=== PATIENT | female | born 2000 | race Caucasian/White ===

== ENCOUNTER 2021-08-22 12:50 | Emergency (ER) | payer OTHER, SELFPAY ==
[2021-08-22 13:30] VITALS: BP 108/65; PULSE 70; RESP 16; TEMP 36.6; O2SAT 100
--- NOTE | 2021-08-22 14:35 | ED.FEMALEGU ---
HPI - Female Genitourinary General Chief complaint: Urogenital-Female Stated complaint: Possible UTI Time Seen by Provider: 08/22/21 14:35 Source: patient, RN notes reviewed and old records reviewed Mode of arrival: ambulatory Limitations: no limitations History of Present Illness HPI Narrative: 21-year-old female who presents to [facility] with complaints of 4 days of lower abdominal discomfort, burning with urination, frequency and some intermittent flank pain. Patient denies any vaginal discharge or concern for STD exposure. Patiet reports no known fevers, chills or sweats, denies any nausea vomiting or diarrhea. Patient has not taken any OTC AZO for her symptoms. Related Data Allergies Allergy/AdvReac Type Severity Reaction Status Date / Time No Known Allergies Allergy Verified 08/22/21 14:25 Review of Systems Review of Systems: CONSTITUTIONAL: Denies fever, chills, or sweats. EYES: Denies visual changes, redness, or discharge. ENT: Denies rhinorrhea, congestion, sore throat, or otalgia. CARDIOVASCULAR: Denies chest pain, palpitations, or edema. RESPIRATORY: Denies cough or dyspnea. GASTROINTESTINAL: reports lower supra pubic abdominal pain, no nausea, vomiting, or diarrhea. GENITOURINARY:Positive for dysuria or hematuria. SKIN: Denies rash or itching. MUSCULOSKELETAL: Denies back pain, joint pain, or myalgia. NEUROLOGIC: Denies headache, numbness, or weakness. PSYCHIATRIC: Denies anxiety or depression. All systems reviewed & are unremarkable except as noted in HPI and below PMFSH Past Medical History Medical History (Updated 08/25/21 @ 22:44 by Pinky Medrano NP) No pertinent past medical history Surgical History Surgical History (Updated 08/25/21 @ 22:44 by Pinky Medrano NP) No pertinent past surgical history Family History Family History (Updated 08/25/21 @ 22:44 by Pinky Medrano NP) Other Family history non-contributory Social History Social History (Updated 08/25/21 @ 22:51 by Pinky Medrano NP) Smoking status: Never smoker Alcohol intake: current Alcohol use details: social Substance use: never Additional occupation/education comments: Gender identity (if verbalized by the patient): Female Comments At time of signature, agree with nursing past medical, surgical, social and family history. There is no relevant family history pertinent to the presenting complaint Exam Narrative: GENERAL: Well-appearing, well-nourished, and in no acute distress. HEAD: Normocephalic, atraumatic. EYES: PERRLA and EOMI. ENT: Nares clear, no rhinorrhea or epistaxis. Mucous membranes moist.TM's normal throat normal with no exudates or lesions or tonsil swelling NECK: Supple.no lymphadenopathy CHEST: Clear to auscultation. No respiratory distress. HEART: Regular rate and rhythm. No murmur heard. Normal peripheral pulses. ABDOMEN: Soft, tender suprapubic area on palpation negative McBurney point tenderness, nondistended, normal active bowel sounds.No flank pain reproduced on examination. EXTREMITIES: Normal range of motion. No edema. SKIN: Warm, dry, no rash. NEURO: No focal deficits. Alert and oriented x3. Course Vital Signs Vital signs: Vital Signs Temperature 36.6 C 08/22/21 13:30 Pulse Rate 70 08/22/21 13:30 Respiratory Rate 16 08/22/21 13:30 Blood Pressure 108/65 08/22/21 13:30 Pulse Oximetry 100 08/22/21 13:30 Temperature 36.6 C 08/22/21 13:30 Pulse Rate 70 08/22/21 13:30 Respiratory Rate 16 08/22/21 13:30 Blood Pressure 108/65 08/22/21 13:30 Pulse Oximetry 100 08/22/21 13:30 MDM - Female Genitourinary Differential Diagnosis Differential diagnosis: Likely urinary tract infection, cystitis and other (Dysuria) Medical Records Attestation: I reviewed the patient's medical records. Lab Data Attestation: I reviewed the patient's lab results. Lab results narrative: See urine dip: negative leukocytes, negative for blood, neg
--- NOTE | 2021-08-25 13:51 | PC.NURSE ---
11:48- Urine results came back + for group B strep [facility] called and spoke with pt. LMP today. Pt given Bactrium DOS medication changed to Amoxil. Rx sent to [facility] in [place].
== END 2021-08-22 14:55 | disposition home or self-care (01) ==
PROVIDERS: Emergency Provider Registered Nurse
DX: R30.0 Dysuria (principal); R10.30 Lower abdominal pain, unspecified
CPT/HCPCS: 81003; 87077; 87086; 87088; 99203; G0463